=== PATIENT | male | born 1970 | race African-American/Black ===

== ENCOUNTER 2018-06-23 17:53 | Emergency (ER) | payer OTHER ==
[2018-06-23 18:06] VITALS: BP 114/69; PULSE 81; TEMP 98.3; BMI 32.5
[2018-06-23] MEDS ORDERED: ERYTHROMYCIN 0.5% OPHTHALMIC OINTMENT 3.5 GM TUBE OS ONE (18:58)
--- NOTE | 2018-06-23 18:58 | PDOC ---
History of Present Illness - General Chief Complaint: Eye Problem Stated Complaint: SWELLING TO EYE Time Seen by Provider: 06/23/18 18:07 History Source: Patient Exam Limitations: No Limitations - History of Present Illness Initial Comments: 06/23/18 18:59 Patient is a 47-year-old male who presents to the ER with left eye lid swelling. Patient states this started approximately 2 days ago. He states that he feels a ball on the eyelid. Denies visual changes, fever, eye pain, spots floaters, and double vision Past History - Travel Traveled outside of the country in the last 30 days: No Close contact w/someone who was outside of country & ill: No - Past Medical History Allergies/Adverse Reactions: Allergies Allergy/AdvReac Type Severity Reaction Status Date / Time No Known Allergies Allergy Verified 06/23/18 18:05 Home Medications: Ambulatory Orders Erythromycin 0.5% Eye Ointment [Erythromycin 0.5% Eye Ointment -] 1 applic OS TID #1 tube 06/23/18 Ibuprofen 600 mg PO Q6H #30 tablet 06/23/18 COPD: No - Suicide/Smoking/Psychosocial Hx Smoking History: Never smoked Review of Systems - Review of Systems Able to Perform ROS?: Yes Comments:: 06/23/18 18:52 CONSTITUTIONAL: Absent: fever, chills, diaphoresis, generalized weakness, malaise, loss of appetite HEENT: Present: L upper eye lid swelling Absent: rhinorrhea, nasal congestion, throat pain, throat swelling, difficulty swallowing, mouth swelling, ear pain, eye pain , visual Changes CARDIOVASCULAR: Absent: chest pain, loss of consciousness, palpitations, irregular heart rate, peripheral edema RESPIRATORY: Absent: cough, shortness of breath, dyspnea with exertion, orthopnea, wheezing, stridor, hemoptysis GASTROINTESTINAL: Absent: abdominal pain, abdominal distension, nausea, vomiting, diarrhea, constipation, melena, hematochezia GENITOURINARY: Absent: dysuria, frequency, urgency, hesitancy, hematuria, flank pain, genital pain MUSCULOSKELETAL: Absent: myalgia, arthralgia, joint swelling SKIN: Absent: rash, itching, pallor HEMATOLOGIC/IMMUNOLOGIC: Absent: easy bleeding, easy bruising, lymphadenopathy, frequent infections ENDOCRINE: Absent: unexplained weight gain, unexplained weight loss, heat intolerance, cold intolerance NEUROLOGIC: Absent: headache, focal weakness or paresthesias, dizziness, unsteady gait, seizure, mental status changes, bladder or bowel incontinence PSYCHIATRIC: Absent: anxiety, depression, suicidal or homicidal ideation, hallucinations. Is the patient limited Persian proficient: No *Physical Exam - Vital Signs Last Vital Signs Temp Pulse Resp BP Pulse Ox 98.3 F 81 18 114/69 99 06/23/18 18:03 06/23/18 18:03 06/23/18 18:03 06/23/18 18:03 06/23/18 18:03 - Physical Exam Comments: 06/23/18 18:53 GENERAL: The patient is awake, alert, and fully oriented, in no acute distress. HEAD: Normal with no signs of trauma. EYES: Pupils equal, round and reactive to light, extraocular movements intact, sclera anicteric, conjunctiva clear. L Upper lid is edematous. Sty noted to the inner eye lid closer to the lateral canthus. EXTREMITIES: Normal range of motion, no edema. NEUROLOGICAL: Normal speech, normal gait. PSYCH: Normal mood, normal affect. SKIN: Warm, Dry, normal turgor, no rashes or lesions noted. Moderate Sedation - Procedure Monitoring Vital Signs: Procedure Monitoring Vital Signs Temperature 98.3 F 06/23/18 18:03 Pulse Rate 81 06/23/18 18:03 Respiratory Rate 18 06/23/18 18:03 Blood Pressure 114/69 06/23/18 18:03 O2 Sat by Pulse Oximetry (%) 99 06/23/18 18:03 Medical Decision Making - Medical Decision Making 06/23/18 19:01 Patient is a 47-year-old male with no past medical history who presents with 2 days of left upper eyelid swelling. On exam sty appreciated to the left upper eyelid. We'll refer to ophthalmology. Erythromycin ointment given, warm water compresses recommended a supportive therapy. Discharge home I discussed the physical exam findings, ancillary test results and final diagnoses with the patient. I answered all of the patient's questions. The patient was satisfied with the care received and felt comfortable with the discharge plan and treatment plan. The Patient agrees to follow up with the primary care physician/specialist within 24-72 hours. Return precautions were given. [place] like *DC/Admit/Observation/Transfer Diagnosis at time of Disposition: Sty, internal Qualifiers: Laterality: left Eyelid: upper Qualified Code(s): H00.024 - Hordeolum internum left upper eyelid - Discharge Dispostion Disposition: HOME Condition at time of disposition: Stable Decision to Admit order: No - Prescriptions Prescriptions: Erythromycin 0.5% Eye Ointment [Erythromycin 0.5% Eye Ointment -] 1 applic OS TID #1 tube Ibuprofen 600 mg PO Q6H #30 tablet - Referrals Referrals: Soumya Ibrahim MD [Primary Care Provider] - Latrell Dennis MD [Staff Physician] - - Patient Instructions Printed Discharge Instructions: DI for Hordeolum Additional Instructions: You have a sty Please use warm compresses to the area every hour Use the Erythromycin ointment three times a day You may take Motrin as needed for pain. You may take 600mg every 6 hours not to exceed 3,000mg a day Follow up with ophthalmology. A referral has been provided Return to the ED for worsening pain, fever, or if you have any changes in your symptoms. - Post Discharge Activity
[2018-06-23] MEDS ORDERED: ERYTHROMYCIN 0.5% OPHTHALMIC OINTMENT 3.5 GM TUBE ONE (19:00)
== END 2018-06-23 19:03 | disposition home or self-care (01) ==
LOC: JERFT 17:53
DX: H00.024 Hordeolum internum left upper eyelid (principal)
CPT/HCPCS: 99281-25

== ENCOUNTER 2022-05-23 14:44 | Emergency (ER) | payer OTHER ==
[2022-05-23 15:07] VITALS: BP 127/86; PULSE 93; RESP 16; TEMP 98.3; BMI 32.5
[2022-05-23] MEDS ORDERED: SODIUM CHLORIDE 0.9% 500 ML INFUS.BAG IV ONE (17:01)
[2022-05-23] MEDS ORDERED: KETOROLAC TROMETHAMINE 30 MG/1 ML VIAL IVPUSH ONE (17:31)
[2022-05-23 18:03] LABS: THROAT:GRP A STREP NOT DETECTED (NOTDETECTED)
[2022-05-23 18:29] LABS: BASO % 0.2 % (0-2.0); EOS % 0.7 % (0-4.5); HEMATOCRIT 37.9 % (35.4-49); HEMOGLOBIN 12.5 GM/dL (11.7-16.9); LYMPH % 26.3 % (8-40); MCH 26.7 pg (25.7-33.7); MCHC 32.9 g/dl (32.0-35.9); MEAN CELL VOLUME 81.4 fl (80-96); MEAN PLT VOLUME 7.2 fl (7.5-11.1); MONO % 8.2 % (3.8-10.2); NEUT % 64.6 % (42.8-82.8); PLATELET COUNT 317 10^3/uL (134-434); RBC 4.66 M/mm3 (4.00-5.60); RDW 14.4 % (11.9-15.9); WHITE BLOOD COUNT 8.5 K/mm3 (4.0-10.0)
[2022-05-23 18:45] LABS: ALBUMIN 3.3 g/dl (3.4-5.0); BLOOD UREA NITROGEN 9.2 mg/dL (7-18)
[2022-05-23 18:49] LABS: BILIRUBIN,TOTAL 0.6 mg/dL (0.2-1)
[2022-05-23 18:52] LABS: TOT PROT 7.1 g/dl (6.4-8.2)
== END 2022-05-23 20:47 | disposition home or self-care (01) ==
LOC: JER 14:44
PROC: 3E033GC Introduction of Other Therapeutic Substance into Peripheral Vein, Percutaneous Approach (ICD-10-PCS; principal; 2022-05-23)
DX: R73.9 Hyperglycemia, unspecified (principal); H00.011 Hordeolum externum right upper eyelid
CPT/HCPCS: 0241U-QW; 36415; 71046-TC-FY; 80053; 82962; 84484; 85025; 87651; 93005; 93010; 99285-25